=== PATIENT | female | born 1985 | race Two or more races ===

== ENCOUNTER 2016-03-28 18:13 | Emergency (ER) | payer MEDICAID ==
[~2016-03-28] VITALS: Ht 157.5 cm; Wt 59.0 kg
[2016-03-28 18:28] VITALS: BP 106/67
== END 2016-03-28 20:53 | disposition left against medical advice (07) ==
LOC: ER 18:17
DX: Z53.21 Procedure and treatment not carried out due to patient leaving prior to being seen by health care provider (principal)
CPT/HCPCS: A4606; Z7610

== ENCOUNTER 2016-03-29 09:36 | Emergency (ER) | payer MEDICAID ==
[~2016-03-29] VITALS: Ht 157.5 cm; Wt 54.4 kg
[2016-03-29 09:46] VITALS: BP 101/70
[2016-03-29] MEDS ORDERED: KETOROLAC TROMETHAMINE INJ 30 MG/ML VIAL ONE (10:38)
[2016-03-29] MEDS ORDERED: KETOROLAC TROMETHAMINE INJ 30 MG/ML VIAL IM ONE (11:00)
== END 2016-03-29 10:51 | disposition home or self-care (01) ==
LOC: ER 09:39
DX: Z76.0 Encounter for issue of repeat prescription (principal)
CPT/HCPCS: A4606; J1885; Z7610

== ENCOUNTER 2017-04-21 17:14 | Emergency (ER) | payer MEDICAID ==
[~2017-04-21] VITALS: Ht 157.5 cm; Wt 61.2 kg
[2017-04-21 17:26] VITALS: BP 129/76
[2017-04-21] MEDS ORDERED: ONDANSETRON 4 MG TAB.RAPDIS PO ONE (18:00)
[2017-04-21] MEDS ORDERED: KETOROLAC TROMETHAMINE INJ 60 MG/2 ML VIAL IM ONE (18:00)
[2017-04-21] MEDS ORDERED: HYDROCODONE BIT/HOMATROPINE 5 ML UDC PO ONE (18:00)
[2017-04-21] MEDS ORDERED: MISCELLANEOUS MED 1 EA EA XX ONE (18:00)
[2017-04-21] MEDS ORDERED: KETOROLAC TROMETHAMINE INJ 30 MG/ML VIAL ONE (19:07)
[2017-04-21] MEDS ORDERED: HYDROCODONE BIT/HOMATROPINE 5 ML UDC ONE (19:07)
[2017-04-21] MEDS ORDERED: ONDANSETRON 4 MG TAB.RAPDIS ONE (19:08)
== END 2017-04-21 20:02 | disposition home or self-care (01) ==
LOC: ER 17:17
DX: J11.1 Influenza due to unidentified influenza virus with other respiratory manifestations (principal); Z90.89 Acquired absence of other organs
CPT/HCPCS: 71045-TC; A4606; J1885; Q0162; Z7610

== ENCOUNTER 2017-10-24 15:34 | Emergency (ER) | payer SELFPAY ==
[~2017-10-24] VITALS: Ht 157.5 cm; Wt 59.0 kg
--- NOTE | 2017-10-24 16:59 | NUR ---
URINE SAMPLE COLLECTED AND SENT TO LAB
[2017-10-24] MEDS ORDERED: MAG HYDROX/AL HYDROX/SIMETH 30 ML UDC PO ONE (17:30)
[2017-10-24] MEDS ORDERED: METOCLOPRAMIDE HCL 10 MG/2 ML VIAL IV ONE (17:30)
[2017-10-24] MEDS ORDERED: IV NS 0.9% 500 ML BAG IV ONE ×2 (17:30→19:30)
[2017-10-24] MEDS ORDERED: FAMOTIDINE/PF INJ 20 MG/2 ML VIAL IV ONE ×2 (17:30→17:31)
[2017-10-24] MEDS ORDERED: MAG HYDROX/AL HYDROX/SIMETH 30 ML UDC ONE (17:31)
[2017-10-24] MEDS ORDERED: METOCLOPRAMIDE HCL 10 MG/2 ML VIAL ONE (17:31)
[2017-10-24 17:45] LABS: BASOPHILS % (AUTO) 0.7 % (0.0-2.0); EOSINOPHILS % (AUTO) 2.6 % (0.0-6.0); HEMATOCRIT 40 % (33-45); HEMOGLOBIN 13.5 g/dL (11.5-14.8); LYMPHOCYTES % (AUTO) 35.1 % (20.0-44.0); MEAN CORPUSCULAR HEMOGLOBIN 31 PG (26.0-33.0); MEAN CORPUSCULAR HGB CONC 34 g/dl (31.0-36.0); MEAN CORPUSCULAR VOLUME 94 fL (82-100); MONOCYTES % (AUTO) 4.8 % (2.0-12.0); NEUTROPHILS % (AUTO) 56.8 % (43.0-81.0); PLATELET COUNT (AUTO) 248 /CMM (150-450); RDW COEFFICIENT OF VARIATION 11.8 (11.5-15.0); WHITE BLOOD COUNT (AUTO) 7.8 K/uL (4.3-11.0)
[2017-10-24 17:46] LABS: BASOPHILS # (AUTO) 0.1 /CMM (0.0-0.2); LYMPHOCYTES # (AUTO) 2.7 /CMM (0.8-4.8); MONOCYTES # (AUTO) 0.4 /CMM (0.1-1.30); NEUTROPHILS # (AUTO) 4.4 /CMM (1.8-8.9)
[2017-10-24 17:50] LABS: APPEARANCE,URINE Clear (CLEAR); BILIRUBIN,URINE Negative (NEGATIVE); BLOOD, URINE Small Ery/uL (NEGATIVE); COLOR,URINE Yellow (YELLOW); KETONES,URINE Trace (NEGATIVE); LEUKOCYTE ESTERASE ,URINE Negative (NEGATIVE); NITRITE, URINE Negative (NEGATIVE); PH,URINE 6.5 (5.0-8.0); PROTEIN,URINE Negative (NEGATIVE); UGLUCOSE Negative (NEGATIVE); UROBILINOGEN,URINE 0.2 EU/dL (0.2)
[2017-10-24 18:00] LABS: POTASSIUM 3.6 mmol/L (3.5-5.1)
[2017-10-24 18:01] LABS: ALBUMIN 3.4 g/dL (3.4-5.0); BILIRUBIN,DIRECT 0.1 mg/dL (0.0-0.2); BILIRUBIN,TOTAL 0.3 mg/dL (0.2-1.0); CALCIUM, SERUM 8.6 mg/dL (8.5-10.1); CREATININE 0.8 mg/dL (0.6-1.3); TOTAL PROTEIN, SERUM 7.1 g/dL (6.4-8.2)
[2017-10-24 18:01] LABS: RBC,URINE 0-2 /HPF (0-2)
[2017-10-24 18:02] LABS: BACTERIA,URINE Few /HPF (None Seen); SQUAMOUS EPITHELIAL CELL,UR Moderate /HPF (None Seen); WBC,URINE 0-2 /HPF (0-3)
--- NOTE | 2017-10-24 18:56 | NUR ---
Jan collado in [facility] - 10/24/17 at 1901 by MERLE Patient discharged to home in stable condition. Written and verbal after care instructions given. Patient verbalizes understanding of instruction.
--- NOTE | 2017-10-24 19:00 | NUR ---
PATIENT'S BLOOD PRESSURE IS 93/60 PER EVELIA, HAVE THE PATIENT REST FOR A LITTLE BIT BEFORE DISCHARGE
[2017-10-24 19:01] VITALS: BP 93/60
== END 2017-10-24 19:52 | disposition home or self-care (01) ==
LOC: ER 15:37
DX: R10.13 Epigastric pain (principal); Z90.89 Acquired absence of other organs; Z98.84 Bariatric surgery status
CPT/HCPCS: 36415; 80048; 80076; 81001; 83690; 84703; 85025; 85730; 96374; 96375; 99284; A4606; J2765; J3490; J7040 ×2; Z7610; 81000-TC

== ENCOUNTER 2018-02-13 12:23 | Emergency (ER) | payer MEDICAID ==
[~2018-02-13] VITALS: Ht 157.5 cm; Wt 59.9 kg
[2018-02-13 12:30] VITALS: BP 118/68
== END 2018-02-13 13:33 | disposition home or self-care (01) ==
LOC: ER 12:26
DX: J06.9 Acute upper respiratory infection, unspecified (principal); R51 Headache; H69.81 Other specified disorders of Eustachian tube, right ear

== ENCOUNTER 2021-06-20 11:38 | Emergency (ER) | payer OTHER ==
[~2021-06-20] VITALS: Ht 157.5 cm; Wt 65.8 kg
--- NOTE | 2021-06-20 11:52 | NUR ---
URINE COLLECTED AND SENT TO THE LAB
--- NOTE | 2021-06-20 12:16 | NUR ---
DR. OLIVA AT BS FOR GERARDO
[2021-06-20 12:28] LABS: BILIRUBIN,URINE NEGATIVE (NEGATIVE); COLOR,URINE YELLOW (YELLOW); LEUKOCYTE ESTERASE ,URINE NEGATIVE (NEGATIVE); NITRITE, URINE NEGATIVE (NEGATIVE); PROTEIN,URINE NEGATIVE (NEGATIVE); UGLUCOSE NEGATIVE (NEGATIVE); UROBILINOGEN,URINE 0.2 EU/dL (0.2)
[2021-06-20 12:30] LABS: BASOPHILS % (AUTO) 0.6 % (0.0-2.0); EOSINOPHILS % (AUTO) 3.3 % (0.0-6.0); HEMATOCRIT 39 % (33-45); HEMOGLOBIN 13.5 g/dL (11.5-14.8); LYMPHOCYTES # (AUTO) 2.8 K/uL (0.8-4.8); LYMPHOCYTES % (AUTO) 39.3 % (20.0-44.0); MEAN CORPUSCULAR HGB CONC 34 g/dl (31.0-36.0); MEAN CORPUSCULAR VOLUME 92 fL (82-100); MONOCYTES # (AUTO) 0.3 K/uL (0.1-1.30); MONOCYTES % (AUTO) 4.6 % (2.0-12.0); NEUTROPHILS # (AUTO) 3.7 K/uL (1.8-8.9); NEUTROPHILS % (AUTO) 52.2 % (43.0-81.0); PLATELET COUNT (AUTO) 253 K/uL (150-450); RED BLOOD CELL COUNT(AUTO) 4.26 MIL/uL (4.0-5.2); WHITE BLOOD COUNT (AUTO) 7.1 K/uL (4.3-11.0)
[2021-06-20] MEDS ORDERED: MORPHINE SULFATE INJ 2 MG/ML DISP.SYRIN IV ONE (12:30)
[2021-06-20] MEDS ORDERED: ONDANSETRON HCL/PF - ER 4 MG/2 ML VIAL IV ONE (12:30)
[2021-06-20] MEDS ORDERED: MORPHINE SULFATE INJ 4 MG/ML DISP.SYRIN ONE (12:31)
[2021-06-20] MEDS ORDERED: ONDANSETRON HCL/PF 4 MG/2 ML VIAL ONE (12:31)
[2021-06-20 12:35] LABS: CALCIUM, SERUM 9.3 mg/dL (8.5-10.1); CREATININE 0.6 mg/dL (0.6-1.3); POTASSIUM 3.7 mmol/L (3.5-5.1)
[2021-06-20 12:40] LABS: ALBUMIN 3.7 g/dL (3.4-5.0); BILIRUBIN,DIRECT 0.1 mg/dL (0.0-0.2); BILIRUBIN,TOTAL 0.5 mg/dL (0.2-1.0); TOTAL PROTEIN, SERUM 7.9 g/dL (6.4-8.2)
--- NOTE | 2021-06-20 12:45 | NUR ---
recived pt walkin in to ED c/o ABDOMINALE PAIN COME AND JEFFY FOR ONE WEEK DINESES N/V
--- NOTE | 2021-06-20 13:05 | NUR ---
TO CT SCAN OF ABDOMIBN VIA JAYLA MALIK VS
[2021-06-20] MEDS ORDERED: DOCU-141 PO (14:16)
--- NOTE | 2021-06-20 14:58 | NUR ---
IV removed. Catheter intact and site benign. Pressure and 4x4 applied to site. No bleeding noted.Patient discharged to home in stable condition. Written and verbal after care instructions given. Patient verbalizes understanding of instruction.
[2021-06-20 14:59] VITALS: BP 124/63
== END 2021-06-20 14:59 | disposition home or self-care (01) ==
LOC: ER 11:52
DX: R10.13 Epigastric pain (principal); R10.10 Upper abdominal pain, unspecified; K59.00 Constipation, unspecified; Z90.89 Acquired absence of other organs
CPT/HCPCS: 36415; 74176; 80048; 80076; 81003; 83690; 84703; 85025; 96374; 96375; 99284; J2270; J2405 ×2

== ENCOUNTER 2021-10-28 13:43 | Emergency (ER) | payer OTHER ==
[~2021-10-28] VITALS: Ht 157.5 cm; Wt 68.0 kg
[~2021-10-28 13:43] MED LIST: DOCU-141 PO
--- NOTE | 2021-10-28 13:54 | NUR ---
GOLD WU FROM [facility], SEND FOR AGRESSIVE BEHAVIOR. MEDICAL AND PSYCH CLEARANCE FOR GPS ADMISSION. 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 PLACED ON BED, AAOX4, BREATHING EVEN AND UNLABORED SATURATING AT 98%RA
[2021-10-28] MEDS ORDERED: MORPHINE SULFATE INJ 2 MG/ML DISP.SYRIN IM ONE (14:30)
[2021-10-28 14:34] LABS: BASOPHILS % (AUTO) 0.5 % (0.0-2.0); EOSINOPHILS % (AUTO) 2.2 % (0.0-6.0); HEMATOCRIT 39 % (33-45); HEMOGLOBIN 13.2 g/dL (11.5-14.8); LYMPHOCYTES # (AUTO) 2.5 K/uL (0.8-4.8); LYMPHOCYTES % (AUTO) 35.1 % (20.0-44.0); MEAN CORPUSCULAR HGB CONC 34 g/dl (31.0-36.0); MEAN CORPUSCULAR VOLUME 93 fL (82-100); MONOCYTES # (AUTO) 0.3 K/uL (0.1-1.30); MONOCYTES % (AUTO) 4.9 % (2.0-12.0); NEUTROPHILS # (AUTO) 4.1 K/uL (1.8-8.9); NEUTROPHILS % (AUTO) 57.3 % (43.0-81.0); PLATELET COUNT (AUTO) 249 K/uL (150-450); RED BLOOD CELL COUNT(AUTO) 4.19 MIL/uL (4.0-5.2); WHITE BLOOD COUNT (AUTO) 7.2 K/uL (4.3-11.0)
[2021-10-28] MEDS ORDERED: MORPHINE SULFATE INJ 4 MG/ML DISP.SYRIN ONE (14:42)
--- NOTE | 2021-10-28 15:06 | NUR ---
U/S TECH AT BED SIDE
[2021-10-28 15:21] LABS: CALCIUM, SERUM 9.1 mg/dL (8.5-10.1); CREATININE 0.7 mg/dL (0.6-1.3); POTASSIUM 3.6 mmol/L (3.5-5.1)
[2021-10-28 15:26] LABS: ALBUMIN 3.8 g/dL (3.4-5.0); BILIRUBIN,DIRECT 0.1 mg/dL (0.0-0.2); BILIRUBIN,TOTAL 0.3 mg/dL (0.2-1.0); TOTAL PROTEIN, SERUM 7.9 g/dL (6.4-8.2)
[2021-10-28] MEDS ORDERED: HYDR-4209 PO (16:12)
--- NOTE | 2021-10-28 16:27 | NUR ---
Patient discharged to home in stable condition. Written and verbal after care instructions given. Patient verbalizes understanding of instruction.
[2021-10-28 16:28] VITALS: BP 115/75
== END 2021-10-28 16:29 | disposition home or self-care (01) ==
LOC: ER 14:00
DX: O46.91 Antepartum hemorrhage, unspecified, first trimester (principal); Z90.89 Acquired absence of other organs; Z3A.01 Less than 8 weeks gestation of pregnancy
CPT/HCPCS: 99284; 76805; 96372; 85025; 80048; 80076; 36415; 85730; 84702; J2270

== ENCOUNTER 2022-09-04 10:33 | Emergency (ER) | payer OTHER ==
[~2022-09-04] VITALS: Ht 157.5 cm; Wt 63.5 kg
[~2022-09-04 10:33] MED LIST changes: +HYDR-4209 PO
--- NOTE | 2022-09-04 10:37 | NUR ---
AAOX3 came to ER c/o worsening epigastric pain started yesterday with N/V/D. Resp is even and unlabored with NAD noted. Skin is warm and non diaphoretic. Placed on the monitor and will continuously monitor the patient. Awaiting md for eval.
[2022-09-04] MEDS ORDERED: MORPHINE SULFATE INJ 4 MG/ML DISP.SYRIN ONE (11:16)
[2022-09-04] MEDS ORDERED: ONDANSETRON HCL/PF 4 MG/2 ML VIAL ONE (11:16)
--- NOTE | 2022-09-04 11:19 | NUR ---
Dr Keith at BS for eval.
[2022-09-04] MEDS: ONDANSETRON HCL/PF 4 MG/2 ML VIAL IVP ONE (11:21)
[2022-09-04] MEDS: MORPHINE SULFATE INJ 2 MG/ML DISP.SYRIN IV ONE (11:21)
[2022-09-04] MEDS: IV NS 0.9% 1,000 ML BAG IV ONE (11:21)
--- NOTE | 2022-09-04 11:22 | NUR ---
EKG in progress at [facility]
--- NOTE | 2022-09-04 11:23 | NUR ---
BLOOD SAMPLES OBTAINED
[2022-09-04 11:33] LABS: BASOPHILS % (AUTO) 0.4 % (0.0-2.0); EOSINOPHILS % (AUTO) 1.7 % (0.0-6.0); HEMATOCRIT 41 % (33-45); HEMOGLOBIN 13.6 g/dL (11.5-14.8); LYMPHOCYTES # (AUTO) 2.3 K/uL (0.8-4.8); LYMPHOCYTES % (AUTO) 31.2 % (20.0-44.0); MEAN CORPUSCULAR HGB CONC 34 g/dl (31.0-36.0); MEAN CORPUSCULAR VOLUME 95 fL (82-100); MONOCYTES # (AUTO) 0.4 K/uL (0.1-1.30); MONOCYTES % (AUTO) 5.7 % (2.0-12.0); NEUTROPHILS # (AUTO) 4.6 K/uL (1.8-8.9); PLATELET COUNT (AUTO) 224 K/uL (150-450); RED BLOOD CELL COUNT(AUTO) 4.28 MIL/uL (4.0-5.2); WHITE BLOOD COUNT (AUTO) 7.5 K/uL (4.3-11.0)
[2022-09-04 11:53] LABS: ALBUMIN 3.6 g/dL (3.4-5.0); BILIRUBIN,DIRECT 0.1 mg/dL (0.0-0.2); BILIRUBIN,TOTAL 0.7 mg/dL (0.2-1.0); CALCIUM, SERUM 9.1 mg/dL (8.5-10.1); CREATININE 0.6 mg/dL (0.6-1.3); POTASSIUM 3.4 mmol/L (3.5-5.1); TOTAL PROTEIN, SERUM 7.8 g/dL (6.4-8.2)
--- NOTE | 2022-09-04 13:40 | NUR ---
URINE SAMPLE OBTAINED
--- NOTE | 2022-09-04 13:59 | NUR ---
COVID TEST COLLECTED AND SENT
[2022-09-04] MEDS ORDERED: PANTOPRAZOLE 40 MG VIAL ONE (14:04)
[2022-09-04] MEDS ORDERED: KETOROLAC TROMETHAMINE INJ 30 MG/ML VIAL ONE (14:04)
[2022-09-04 14:06] LABS: BILIRUBIN,URINE NEGATIVE (NEGATIVE); COLOR,URINE YELLOW (YELLOW); LEUKOCYTE ESTERASE ,URINE NEGATIVE (NEGATIVE); NITRITE, URINE NEGATIVE (NEGATIVE); PROTEIN,URINE NEGATIVE (NEGATIVE); UGLUCOSE NEGATIVE (NEGATIVE); UROBILINOGEN,URINE 0.2 EU/dL (0.2)
[2022-09-04] MEDS: PANTOPRAZOLE 40 MG VIAL IV ONE (14:06)
[2022-09-04] MEDS: KETOROLAC TROMETHAMINE INJ 30 MG/ML VIAL IV ONE (14:06)
[2022-09-04 14:09] LABS: BACTERIA,URINE Rare /HPF (None Seen); RBC,URINE 0-2 /HPF (0-2); SQUAMOUS EPITHELIAL CELL,UR Few /HPF (None Seen); WBC,URINE 0-2 /HPF (0-3)
[2022-09-04] MEDS ORDERED: ONDA4TAB5 PO (14:17)
--- NOTE | 2022-09-04 14:23 | NUR ---
CALLED LAB SAID DID NOT REICEIVE SWAB. PT WAS RE SWABED.
--- NOTE | 2022-09-04 15:37 | NUR ---
Patient discharged to home in stable condition. Written and verbal after care instructions given. Patient verbalizes understanding of instruction.IV removed. Catheter intact and site benign. Pressure and 4x4 applied to site. No bleeding noted.
[2022-09-04 15:38] VITALS: BP 140/92; TEMP 97.9; O2SAT 100
== END 2022-09-04 15:39 | disposition home or self-care (01) ==
LOC: ER 10:47
DX: B34.9 Viral infection, unspecified (principal); R10.13 Epigastric pain; Z90.49 Acquired absence of other specified parts of digestive tract; Z20.822 Contact with and (suspected) exposure to COVID-19; Z79.899 Other long term (current) drug therapy
CPT/HCPCS: 99285; 74176; 96374; 96375; 71045; 96361; 87426; 93005; 85025; 80048; 83690; 80076; 84703; 81001; 36415; 84702; J2270; J1885; J2405; J7030; C9113; C9803

== ENCOUNTER 2022-12-11 03:25 | Emergency (ER) | payer OTHER ==
[~2022-12-11] VITALS: Ht 157.5 cm; Wt 68.0 kg
[~2022-12-11 03:25] MED LIST changes: +ONDA4TAB5 PO
[2022-12-11 03:36] VITALS: BP 112/84; TEMP 98.3
[2022-12-11] MEDS ORDERED: MAG HYDROX/AL HYDROX/SIMETH 30 ML UDC ONE (03:46)
[2022-12-11] MEDS ORDERED: LIDOCAINE VISCOUS 2% UD 15 ML UDC ONE (03:46)
[2022-12-11] MEDS ORDERED: MAG HYDROX/AL HYDROX/SIMETH 30 ML UDC PO ONE (04:00)
[2022-12-11] MEDS ORDERED: LIDOCAINE VISCOUS 2% UD 15 ML UDC MM ONE (04:00)
[2022-12-11] MEDS ORDERED: FAMOTIDINE (20 MG) 20 MG TABLET ONE (04:05)
[2022-12-11] MEDS ORDERED: FAMO-131 PO (04:08)
[2022-12-11] MEDS ORDERED: FAMOTIDINE (20 MG) 20 MG TABLET PO ONE (04:30)
[2022-12-11 04:32] VITALS: O2SAT 97
== END 2022-12-11 04:33 | disposition home or self-care (01) ==
LOC: ER 03:29
DX: R07.0 Pain in throat (principal); Z79.899 Other long term (current) drug therapy; Z98.890 Other specified postprocedural states

== ENCOUNTER 2023-04-25 20:12 | Emergency (ER) | payer OTHER ==
[~2023-04-25] VITALS: Ht 157.5 cm; Wt 64.4 kg
[~2023-04-25 20:12] MED LIST changes: +FAMO-131 PO
[2023-04-25] MEDS: ONDANSETRON HCL/PF 4 MG/2 ML VIAL IVP ONE (20:57)
[2023-04-25] MEDS: IV NS 0.9% 1,000 ML BAG IV ONE (20:57)
[2023-04-25] MEDS: MORPHINE SULFATE INJ 2 MG/ML DISP.SYRIN IV ONE (20:57)
[2023-04-25 21:00] LABS: BASOPHILS % (AUTO) 0.3 % (0.0-2.0); EOSINOPHILS # (AUTO) 0.2 K/uL (0.0-0.7); EOSINOPHILS % (AUTO) 1.6 % (0.0-6.0); HEMATOCRIT 37 % (33-45); HEMOGLOBIN 12.8 g/dL (11.5-14.8); LYMPHOCYTES # (AUTO) 2.1 K/uL (0.8-4.8); LYMPHOCYTES % (AUTO) 19.1 % (20.0-44.0); MEAN CORPUSCULAR HEMOGLOBIN 32 PG (26.0-33.0); MEAN CORPUSCULAR HGB CONC 34 g/dl (31.0-36.0); MEAN CORPUSCULAR VOLUME 95 fL (82-100); MONOCYTES # (AUTO) 0.7 K/uL (0.1-1.30); MONOCYTES % (AUTO) 6.3 % (2.0-12.0); NEUTROPHILS # (AUTO) 8.1 K/uL (1.8-8.9); NEUTROPHILS % (AUTO) 72.7 % (43.0-81.0); PLATELET COUNT (AUTO) 238 K/uL (150-450); RED BLOOD CELL COUNT(AUTO) 3.94 MIL/uL (4.0-5.2); RED CELL DISTRIBUTION WIDTH 12.9 % (11.5-15.0); WHITE BLOOD COUNT (AUTO) 11.1 K/uL (4.3-11.0)
[2023-04-25 21:14] LABS: CALCIUM, SERUM 8.8 mg/dL (8.5-10.1); CREATININE 0.7 mg/dL (0.6-1.3); POTASSIUM 3.6 mmol/L (3.5-5.1)
[2023-04-25 21:15] LABS: APPEARANCE,URINE CLOUDY (CLEAR); BILIRUBIN,URINE 1+ (NEGATIVE); BLOOD, URINE 2+ Ery/uL (NEGATIVE); COLOR,URINE YELLOW (YELLOW); KETONES,URINE 1+ mg/dL (NEGATIVE); LEUKOCYTE ESTERASE ,URINE 2+ (NEGATIVE); NITRITE, URINE NEGATIVE (NEGATIVE); PROTEIN,URINE TRACE mg/dl (NEGATIVE); UGLUCOSE NEGATIVE (NEGATIVE)
[2023-04-25 21:22] LABS: BILIRUBIN,DIRECT 0.1 mg/dL (0.0-0.2); BILIRUBIN,TOTAL 0.6 mg/dL (0.2-1.0); TOTAL PROTEIN, SERUM 7.3 g/dL (6.4-8.2)
[2023-04-25 21:38] LABS: ADD URINE CULTURE YES; BACTERIA,URINE 3+ /HPF (None Seen); RBC,URINE 21-50 /HPF (0-2); SQUAMOUS EPITHELIAL CELL,UR 51-80 /HPF (None Seen); WBC,URINE 21-50 /HPF (0-3)
[2023-04-25] MEDS: KETOROLAC TROMETHAMINE INJ 30 MG/ML VIAL IM ONE (22:04)
[2023-04-25] MEDS ORDERED: KETO10TA2 PO (23:23)
[2023-04-25] MEDS ORDERED: AMOX-430 PO (23:23)
[2023-04-25 23:53] VITALS: BP 116/80; TEMP 98.4; O2SAT 98
== END 2023-04-25 23:53 | disposition home or self-care (01) ==
LOC: ER 20:14
DX: K57.32 Diverticulitis of large intestine without perforation or abscess without bleeding (principal); R10.2 Pelvic and perineal pain; Z90.89 Acquired absence of other organs
CPT/HCPCS: 99285; 74176; 96374; 96361; 96375; 85025; 80048; 87086; 83690; 80076; 81001; 36415; 84702; 96372; J1885; J2405; J7030; J2270